=== PATIENT | female | born 1955 | race Caucasian/White ===

== ENCOUNTER 2020-04-14 10:50 | Emergency (ER) | payer OTHER ==
[2020-04-14] MEDS ORDERED: Phytonadione 1 MG/0.5 ML Syringe IM ONE (11:04)
--- NOTE | 2020-04-14 11:26 | EDM.PDOC ---
ED HPI GENERAL MEDICAL PROBLEM - General Chief Complaint: General Stated Complaint: "Needs blood work done, for abnormal labs" Time Seen by Provider: 04/14/20 11:00 Source of Information: Reports: Patient History Limitations: Reports: No Limitations - History of Present Illness INITIAL COMMENTS - FREE TEXT/NARRATIVE: Pt told to come to ER by Coumadin clinic and usual provider because INR was 8.8 Pt on Coumadin Pt positive for Covid several weeks ago Still with occasional cough No fever No other complaints Location: Reports: Generalized - Related Data Allergies Allergy/AdvReac Type Severity Reaction Status Date / Time No Known Allergies Allergy Verified 03/02/14 12:18 ED ROS GENERAL - Review of Systems Review Of Systems: See Below Constitutional: Reports: No Symptoms Respiratory: Reports: Cough Cardiovascular: Reports: No Symptoms GI/Abdominal: Reports: No Symptoms Musculoskeletal: Reports: No Symptoms Skin: Reports: No Symptoms ED EXAM, GENERAL - Physical Exam Exam: See Below Exam Limited By: No Limitations General Appearance: Alert, WD/WN, No Apparent Distress Neck: Supple Respiratory/Chest: Decreased Breath Sounds Cardiovascular: Regular Rate, Rhythm GI/Abdominal: Soft, Non-Tender Course - Orders/Labs/Meds Orders: Active Orders 24 hr Category Date Time Status Chest 1V Frontal [CR] Stat Exams 04/14/20 10:55 Taken Labs: Laboratory Tests 04/14/20 Range/Units 11:13 WBC 8.2 (4.0-10.2) K/uL RBC 4.22 (3.77-5.09) M/uL Hgb 12.3 D (11.7-15.5) g/dL Hct 35.9 (34.0-46.0) % MCV 85.1 D (84.0-98.0) fL MCH 29.1 (28.2-33.3) pg MCHC 34.3 (31.7-36.0) g/dL RDW 13.4 (11.2-14.1) % Plt Count 170 D (150-350) K/uL Neut % (Auto) 80.3 H (45.0-80.0) % Lymph % (Auto) 12.4 (10.0-50.0) % [place]phill % (Auto) 6.6 (2.0-14.0) % Eos % (Auto) 0.5 (0.0-5.0) % Baso % (Auto) 0.2 (0.0-2.0) % Neut # (Auto) 6.56 (1.40-7.00) K/uL Lymph # (Auto) 1.01 (0.50-3.50) K/uL Hemphill # (Auto) 0.54 (0.00-1.00) K/uL Eos # (Auto) 0.04 (0.00-0.50) K/uL Baso # (Auto) 0.02 (0.00-0.20) K/uL Meds: Medications Discontinued Medications Generic Name Dose Route Start Last Admin Trade Name Freq PRN Reason Stop Dose Admin Phytonadione 10 mg 04/14/20 11:15 Aquamephyton IM 04/14/20 11:16 ONETIME ONE - Re-Assessments/Exams Free Text/Narrative Re-Assessment/Exam: 04/14/20 11:25 Pt given Vit K 10 mg IM in ER Pt to follow up in clinic Departure - Departure Time of Disposition: 11:30 Disposition: Home, Self-Care 01 Clinical Impression: Elevated INR - Discharge Information *PRESCRIPTION DRUG MONITORING PROGRAM REVIEWED*: Not Applicable *COPY OF PRESCRIPTION DRUG MONITORING REPORT IN PATIENT GABE: Not Applicable Referrals: Jada Parker, [facility] [Primary Care Provider] - Additional Instructions: Follow up in clinic - My Orders Last 24 Hours: My Active Orders 04/14/20 10:55 Chest 1V Frontal [CR] Stat - Assessment/Plan Last 24 Hours: My Active Orders 04/14/20 10:55 Chest 1V Frontal [CR] Stat
== END 2020-04-14 11:50 | disposition home or self-care (01) ==
LOC: LL.ED 10:50
DX: R79.1 Abnormal coagulation profile (principal); Z79.01 Long term (current) use of anticoagulants
CPT/HCPCS: 36415; 71045; 85025; 96372; 99284; J3430